=== PATIENT | male | born 1935 | race Asian ===

== ENCOUNTER 2017-06-28 12:25 | Outpatient (CLI) | payer MEDICARE, OTHER ==
--- NOTE | 2017-06-29 09:28 | Magnetic Resonance Report ---
MRI LUMBAR SPINE WITHOUT CONTRAST: 06/28/17 CLINICAL: Spinal stenosis. No comparison. TECHNIQUE: Sagittal and axial T1 and T2, and sagittal STIR sequences on a 1.5 [place] magnet. FINDINGS: Grade I L4-5 spondylolisthesis with no pars defects identified. The rest of the bodies are in normal alignment. Normal vertebral body height and normal disc spaces. The overall marrow signal is normal. Small Schmorl's nodes at the superior and inferior endplates of L3. The conus medullaris is normal and terminates at L1-2. L1-2: Intact. L2-3: Moderate size broad-based left foraminal disc protrusion producing mild left neural foraminal stenosis. No apparent nerve root impingement. Mild left facet hypertrophy contributes to the narrowing. L3-4: Intact disc. Bilateral facet hypertrophy and ligamentum flavum hypertrophy. Mild right neural foraminal stenosis. L4-5: Circumferential bulge of the disc. Grade I spondylolisthesis Bilateral facet hypertrophy and ligamentum flavum hypertrophy producing moderate bilateral neural foraminal stenosis. Central spinal canal stenosis with the AP diameter of the canal measuring 7 mm. L5-S1: Circumferential bulge of the disc. A small central and left paracentral annular tear. Moderate facet hypertrophy and moderate ligamentum flavum hypertrophy. Mild bilateral neural foraminal stenosis. An 8 mm cyst of the left facet contributes to neural foraminal narrowing. IMPRESSION: 1.Grade I L4-5 spondylolisthesis with no pars defects identified. 2. Moderate bilateral neural foraminal stenosis and moderate central spinal canal stenosis at L4-5. 3. A moderate size broad-based left L2-3 foraminal disc protrusion producing mild left neural foraminal stenosis. 4. L5-S1 degenerative disc disease with a small central and left paracentral annular tear.
== END 2017-06-28 12:26 | disposition home or self-care (01) ==
LOC: SPVIMAG 12:25
PROVIDERS: ATTEND Specialist
DX: M48.06 Spinal stenosis, lumbar region (principal); M51.37 Other intervertebral disc degeneration, lumbosacral region; M51.26 Other intervertebral disc displacement, lumbar region; M43.16 Spondylolisthesis, lumbar region; M24.28 Disorder of ligament, vertebrae
CPT/HCPCS: 72148